=== PATIENT | male | born 1975 | race Caucasian/White ===

== ENCOUNTER 2019-10-23 19:35 | Observation (INO) ==
[2019-10-23] MEDS ORDERED: SODIUM CHLORIDE 0.9% 500 ML IV ONE (20:01)
[2019-10-23 20:14] LABS: Basophils # (auto) 0.01 K/uL (0-0.2); Basophils % (auto) 0.1 %; Eosinophils # (auto) 0.15 K/uL (0-0.5); Eosinophils % (auto) 1.8 %; Hematocrit (blood only) 40.2 % (42-52); Hemoglobin 13.9 g/dL (14.0-18.0); Immature Granulocytes # (auto) 0.02 K/uL (0.00-0.02); Immature Granulocytes % (auto) 0.2 %; Lymphocytes # (auto) 2.73 K/uL (1.2-3.4); Lymphocytes % (auto) 32.2 %; Mean Corpuscular Hemoglobin 30.2 pg (25-34); Mean Corpuscular Hgb Conc 34.6 g/dL (32-36); Mean Corpuscular Volume 87.2 fL (80-100); Mean Platelet Volume 9.2 fL (7.4-10.4); Monocytes # (auto) 0.77 K/uL (0.11-0.59); Monocytes % (auto) 9.1 %; Neutrophils # (auto) 4.81 K/uL (1.4-6.5); Neutrophils % (auto) 56.6 %; Platelet Count 253 K/uL (130-400); RDW Coefficient of Variation 13.8 % (11.5-14.5); RDW Standard Deviation 43.7 fL (36.4-46.3); Red Blood Count 4.61 M/uL (4.7-6.1); White Blood Count 8.49 K/uL (4.8-10.8)
--- NOTE | 2019-10-23 20:15 | XRay Report ---
XR chest 1V portable HISTORY: 44 years-old Male Chest Pain acute atypical chest pain COMPARISON: Chest radiograph 6 06/30/2015 TECHNIQUE: Portable AP view of the chest FINDINGS: Cardiomediastinal and hilar silhouettes are within normal limits. No pneumothorax, pleural effusion, airspace consolidation or overt pulmonary edema. Bones of the chest appear grossly intact. IMPRESSION: No acute process. ACT 112: Negative or not required by law. The above report was generated using voice recognition software. It may contain grammatical, syntax o r spelling errors. Electronically signed by: Edd Moody M.D. 10/23/2019 8:13 PM
--- NOTE | 2019-10-23 20:21 | Emergency Department Note ---
Impression & Plan Exertional chest pain, History of coronary artery disease, Hypertension ED Provider Note NAME: ZAHIDA SUMMERS AGE: 44 SEX: M ARRIVES VIA: Walk-In INFORMANT: Patient, ED PROVIDER(S): Phil Reid MD CHIEF COMPLAINT: Chest pain PLAN: Disposition: Admit MEDICAL DECISION MAKING: The patient is a pleasant 44-year-old gentleman with a past medical history of CAD status post RCA PCI 6 years ago who presents emergency department with the development of new onset exertional chest pain over the past several weeks with most recent episode 2 hours prior to arrival. Patient reports the symptoms are fairly consistent with exertion and improved with rest. He denies any fevers, chills, cough, congestion, nausea, vomiting, diarrhea, urinary symptoms. On arrival patient is no acute distress, afebrile stable vital signs. EKG without overt acute ischemia. Chest x-ray negative for acute process. WBC and platelets within normal limits. H/H 13.9/40.2 without recent values for comparison. Chemistry without acidosis. Magnesium 1.7 with repletion provided. Troponin negative/undetectable. Lipase is not elevated. Heart score 5, m oderate risk. Given the patient's new onset pattern of exertional chest pain in setting of his cardiac history reasonable admit the patient for further evaluation. Patient is agreeable to this. Case was discussed with Dr. Carty, [facility] hospitalist, who will evaluate the patient for admission. Triage Nursing notes reviewed and agree them. Prior medical records reviewed Vital Signs: reviewed and remarkable for no significant abnormalities Differential diagnosis: Cardiac ischemia, aortic dissection, pulmonary embolism, pneumothorax, pneumonia, pericarditis, myocarditis, esophageal rupture, GERD, cholecystitis, pancreatitis, musculoskeletal, as well as other pathologies. ER treatment provided: See below. Diagnostics interpreted by me: ECG: Normal sinus rhythm, 79 bpm, normal axis, no ectopy, no overt ST elevation or depression, QTC 440, QRS 94. Cardiac Monitoring: An order for continuous cardiac monitoring was placed and demonstrated normal sinus rhythm, 79 bpm, no ectopy. Laboratory studies: See below Imaging studies: XR chest 1V portable HISTORY: 44 years-old Male Chest Pain acute atypical chest pain COMPARISON: Chest radiograph 6 06/30/2015 TECHNIQUE: Portable AP view of the chest FINDINGS: Cardiomediastinal and hilar silhouettes are within normal limits. No pneumothorax, pleural effusion, airspace consolidation or overt pulmonary edema. Bones of the chest appear grossly intact. IMPRESSION: No acute process. Consultation(s): Case was discussed with Dr. Carty, [facility] hospitalist, who will evaluate the patient for admission. HPI: The patient is a pleasant 44-year-old gentleman with a past medical history of CAD status post RCA PCI 6 years ago who presents emergency department with the development of new onset exertional chest pain over the past several weeks with most recent episode 2 hours prior to arrival. Patient reports the symptoms are fairly consistent with exertion and improved with rest. He denies any fevers, chills, cough, congestion, nausea, vomiting, diarrhea, urinary symptoms. ROS: See above HPI for pertinent positives & negatives. A total of 10 systems reviewed and were otherwise negative. PAST MEDICAL HISTORY:See Below PAST SURGICAL HISTORY:See Below FAMILY HISTORY:See Below SOCIAL HISTORY:See Below HOME MEDICATIONS:See Below ALLERGIES:See Below VITALS:See Below PHYSICAL EXAMINATION: GENERAL: Awake, alert, well-appearing, in no distress HENT: Normocephalic, atraumatic. Oropharynx unremarkable. EYES: Normal conjunctiva. Sclera non-icteric. NECK: Supple. No nuchal rigidity. FROM. No JVD. RESPIRATORY: Clear to auscultation. CARDIAC: Regular rate, normal rhythm. Extremities warm and well perfused. Pulses equal. ABDOMEN: Soft, non-distended. No tenderness to palpation. No rebound or guarding. No masses. RECTAL: Deferred. MUSCULOSKELETAL: Chest examination reveals no tenderness. The back is symmetric al on inspection without obvious abnormality. There is no CVA tenderness to palpation. No joint edema. LOWER EXTREMITIES: Calves are equal size bilaterally and non-tender. No edema. No discoloration. NEURO: Normal sensorium. No sensory or motor deficits noted. SKIN: No rash or jaundice noted. Phil Reid MD Past Med/Surg History Medical History History of coronary artery disease Hypercholesteremia Social History Smoking Status: Never smoker Tobacco Type: Cigarettes Hx Alcohol Use: No Hx Substance Use: No Preferred Language: Spanish Communication Ability: Effective Beliefs That Will Affect Care: None Current Living Situation: Alone Feels Safe at Home: Yes Safety Concerns: Feels Safe At This Time Allergies Allergies Allergy/AdvReac Type Severity Reaction Status Date / Time No Known Allergies Allergy Unknown Verified 10/23/19 20:18 Home Meds Home Medications Medication Instructions Recorded Confirmed aspirin [Aspirin Low Dose] 81 mg PO DAILY 10/23/19 10/23/19 Results & Data (ED) Vital Signs Vital Signs - 24 hr 10/23/19 19:40 10/23/19 19:47 10/23/19 19:51 Temperature 36.8 C Temperature Source Oral Pulse Rate 83 78 Pulse Rate [Apical] Pulse Rate from SpO2 Sensor 79 Pulse Rhythm Regular Pulse Strength Normal Respiratory Rate 16 17 Respiratory Effort / Characteristics Non-Labored Spontaneous Respiratory Depth Normal Blood Pressure 189/124 H Blood Pressure [Left Arm] Blood Pressure Mean 145 Blood Pressure Mean [Left Arm] Pulse Oximetry 99 99 99 Oxygen Delivery Method Room Air Room Air Sepsis Recent Fever Within 48 Hours No Sepsis New/Unexplained Change in Mental Status N/A Sepsis Action Taken by Nursing No Action Required 10/23/19 20:00 10/23/19 20:01 10/23/19 20:02 Temperature Temperature Source Pulse Rate 77 Pulse Rate [Apical] 78 Pulse Rate from SpO2 Sensor 77 Pulse Rhythm Pulse Strength Respiratory Rate 16 18 Respiratory Effort / Characteristics Respiratory Depth Normal Blood Pressure Blood Pressure [Left Arm] 180/93 H Blood Pressure Mean Blood Pressure Mean [Left Arm] 122 Pulse Oximetry 98 98 98 Oxygen Delivery Method Room Air Room Air Sepsis Recent Fever Within 48 Hours Sepsis New/Unexplained Change in Mental Status Sepsis Action Taken by Nursing 10/23/19 20:10 10/23/19 20:20 10/23/19 20:30 Temperature Temperature Source Pulse Rate 80 78 97 H Pulse Rate [Apical] Pulse Rate from SpO2 Sensor 80 78 94 H Pulse Rhythm Pulse Strength Respiratory Rate 18 22 17 Respiratory Effort / Characteristics Respiratory Depth Blood Pressure 150/119 H Blood Pressure [Left Arm] Blood Pressure Mean 126 Blood Pressure Mean [Left Arm] Pulse Oximetry 97 96 98 Oxygen Delivery Method Sepsis Recent Fever Within 48 Hours Sepsis New/Unexplained Change in Mental Status Sepsis Action Taken by Nursing 10/23/19 20:31 Temperature Temperature Source Pulse Rate 88 Pulse Rate [Apical] Pulse Rate from SpO2 Sensor 88 Pulse Rhythm Pulse Strength Respiratory Rate 24 Respiratory Effort / Characteristics Respiratory Depth Blood Pressure Blood Pressure [Left Arm] Blood Pressure Mean Blood Pressure Mean [Left Arm] Pulse Oximetry 97 Oxygen Delivery Method Sepsis Recent Fever Within 48 Hours Sepsis New/Unexplained Change in Mental Status Sepsis Action Taken by Nursing Laboratory Data Attestation: I reviewed the patient's lab results. Result diagrams: 10/23/19 20:03 10/23/19 20:03 Lab Results 10/23/19 10/23/19 10/23/19 Range/Units 20:03 20:03 20:03 WBC 8.49 (4.8-10.8) K/uL RBC 4.61 L (4.7-6.1) M/uL Hgb 13.9 L (14.0-18.0) g/dL Hct 40.2 L (42-52) % MCV 87.2 (80-100) fL MCH 30.2 (25-34) pg MCHC 34.6 (32-36) g/dL RDW Std Deviation 43.7 (36.4-46.3) fL RDW Coeff of Larry 13.8 (11.5-14.5) % Plt Count 253 (130-400) K/uL MPV 9.2 (7.4-10.4) fL Immature Gran % (Auto) 0.2 % Neut % (Auto) 56.6 % Lymph % (Auto) 32.2 % [place] % (Auto) 9.1 % Eos % (Auto) 1.8 % Baso % (Auto) 0.1 % Neut # (Auto) 4.81 (1.4-6.5) K/uL Lymph # (Auto) 2.73 (1.2-3.4) K/uL [place] # (Auto) 0.77 H (0.11-0.59) K/uL Eos # (Auto) 0.15 (0-0.5) K/uL Baso # (Auto) 0.01 (0-0.2) K/uL Immature Gran # (Auto) 0.02 (0.00-0.02) K/uL PT 10.9 (9.0-12.0) Seconds INR 1.0 (0.9-1.1) APTT 28.9 (21.0-31.0) Seconds PTT Ratio 1.0 Sodium 141 (136-145) mmol/L Potassium 3.9 (3.5-5.1) mmol/L Chloride 109 H (98-107) mmol/L Carbon Dioxide 27 (21-32) mmol/L Anion Gap 5.0 (3-11) BUN 6 L (7-18) mg/dl Creatinine 0.92 (0.6-1.4) mg/dl Est Cr Clr Drug Dosing 96.6 ml/min Est GFR ( Amer) 115.2 Est GFR (Non-Af Amer) 99.4 BUN/Creatinine Ratio 6.1 L (10-20) Glucose 91 (70-99) mg/dl Calcium 9.7 (8.5-10.1) mg/dl Phosphorus 2.9 (2.5-4.9) mg/dl Magnesium 1.7 L (1.8-2.4) mg/dl Total Bilirubin 0.4 (0.2-1) mg/dl Direct Bilirubin < 0.1 (0-0.2) mg/dl AST 15 (15-37) U/L ALT 22 (12-78) U/L Alkaline Phosphatase 125 H (45-117) U/L Troponin I < 0.015 (0-0.045) ng/ml Total Protein 7.7 (6.4-8.2) gm/dl Albumin 3.7 (3.4-5.0) gm/dl Globulin 4.0 (2.5-4.0) gm/dl Albumin/Globulin Ratio 0.9 (0.9-2) Lipase 69 L (73-393) U/L TSH 3.120 (0.300-4.500) uIu/ml Administered Medications Acetaminophen (Acetaminophen 325 Mg Tab) 650 mg PO Q4H PRN PRN Reason: Pain or Fever Stop: 11/22/19 22:45 Last Admin: 10/23/19 22:59 Dose: 650 mg Documented by: [id number] Potassium Chloride/Sodium Chloride (Normal Saline W/20 Meq Kcl) 20 meq in 1,000 mls @ 100 mls/hr IV .Q10H AMAURY Stop: 11/22/19 22:45 Last Admin: 10/23/19 23:40 Dose: 100 mls/hr Documented by: [id number] Discontinued Medications Aspirin (Aspirin Chew 324 Mg) 162 mg PO NOW STA Stop: 10/23/19 21:08 Last Admin: 10/23/19 21:15 Dose: 162 mg Documented by: [id number] Sodium Chloride (Nss) 500 mls @ 999 mls/hr IV .Q31M ONE Stop: 10/23/19 20:31 Last Infusion: 10/23/19 21:05 Dose: 0 mls/hr Documented by: [id number] Admin: 10/23/19 20:27 Dose: 999 mls/hr Documented by: [id number] Magnesium Sulfate/Dextrose (Magnesium Sulfate / D5w) 1 gm in 100 mls @ 100 mls/hr IV Q1H AMAURY Stop: 10/23/19 23:06 Last Infusion: 10/23/19 23:40 Dose: 0 mls/hr Documented by: [id number] Admin: 10/23/19 22:34 Dose: 100 mls/hr Documented by: [id number] Infusion: 10/23/19 22:18 Dose: 0 mls/hr Documented by: [id number] Admin: 10/23/19 21:15 Dose: 100 mls/hr Documented by: [id number] Nitroglycerin (Nitroglycerin Sl 0.4 Mg/Tab Tab) 0.4 mg SL NOW STA Stop: 10/23/19 22:03 Last Admin: 10/23/19 22:06 Dose: 0.4 mg Documented by: [id number] Blood Pressure Blood Pressure Findings: Elevated blood pressure Blood Pressure Disposition: further management by hospitalist Discharge Plan Visit Data Chief Complaint: Chest Pain Stated Complaint: CHEST PAIN, ARM PAIN/ NUMBNESS ED Provider: Phil Reid Discharge Problem: Exertional chest pain, History of coronary artery disease, Hypertension Patient Disposition: Admitted As Inpatient Discharge Instructions Interventions: ED Discharge Assessment Last Done: 10/23/19 22:21
[2019-10-23 20:25] LABS: Partial Thromboplastin Time 28.9 Seconds (21.0-31.0); Prothrombin Time 10.9 Seconds (9.0-12.0)
[2019-10-23 20:34] LABS: Alanine Aminotransferase 22 U/L (12-78); Albumin Level 3.7 gm/dl (3.4-5.0); Aspartate Aminotransferase 15 U/L (15-37); BUN Creatinine Ratio 6.1 (10-20); Bilirubin Direct < 0.1 mg/dl (0-0.2); Blood Urea Nitrogen 6 mg/dl (7-18); Calcium 9.7 mg/dl (8.5-10.1); Carbon Dioxide 27 mmol/L (21-32); Chloride 109 mmol/L (98-107); Creatinine Clr Calc Pharmacy 96.6 ml/min; Est GFR (African American) 115.2; Est GFR (Non-African American) 99.4; Glucose 91 mg/dl (70-99); Lipase 69 U/L (73-393); Magnesium 1.7 mg/dl (1.8-2.4); Potassium 3.9 mmol/L (3.5-5.1); Sodium 141 mmol/L (136-145)
[2019-10-23 20:43] LABS: Albumin Globulin Ratio 0.9 (0.9-2); Alkaline Phosphatase 125 U/L (45-117); Bilirubin,Total 0.4 mg/dl (0.2-1); Phosphorus 2.9 mg/dl (2.5-4.9); Total Protein 7.7 gm/dl (6.4-8.2); Troponin I < 0.015 ng/ml (0-0.045)
[2019-10-23] MEDS ORDERED: ASPIRIN CHEW 324 MG PO STA (21:07)
[2019-10-23] MEDS: MAGNESIUM SULFATE / D5W 1 GM/100 ML BAG IV SCH ×2 (21:15→22:34)
--- NOTE | 2019-10-23 21:40 | History & Physical Report ---
Date of Service October 23, 2019 Assessment & Plan (1) Unstable angina: Yovanny is a 44-year-old male with a past medical history of RCA PCI 6 years ago and early family history of cardiac disease with his father having heart attack at age 38 and his mother at 70s who presents with increasing stable angina and his first episode of unstable angina. Unstable angina, history of angina and PCI Patient with persistent stable angina over the past few years which improves with rest History of RCA stent 2016, follow-up echo with LVEF 60% Last 24 hours he had exertional chest pain which seems to be much worse in intensity and which has spread into his left shoulder, which has persisted and is still current at rest EKG does not show signs of ischemic change Troponin on arrival to ED negative Trend troponin TTE tomorrow morning Cardiology consulted Patient was previously on a beta-deborah, he self discontinued this due to exertional fatigue about 1 year ago. He is not on an IRINEO/arb or statin. Given his history of coronary disease would recommend these medications. Lipid profi le and A1c pending. Admit to telemetry, n.p.o. overnight BMP, CBC in morning History of syncope Patient had an episode of syncope several years ago. He has not had any lightheadedness, dizziness, syncope, presyncope since He had an implantable loop recorder placed several years ago which was explanted this past year and which did not capture any rhythm irregularities. Because of syncope was not identified, was recommended for device removal and further follow-up as needed by car pathology on 09/2019. Reported history of Crohn's Patient reports that he was told he had Crohn's as a teenager, he has not had any flares since then He had a colonoscopy in the last year for concerns of some mucus, did not show any signs or changes of Crohn's Follow clinically, this may have been a suspected diagnosis without confirmation via colo-/biopsy Hypomagnesemia Repletion ordered BMP daily Elevated AlkPhos - [place] negative, afebrile, no leukocytosis, no sx with meals - Liver ultrasound ordered FEN GI: N.p.o., NSS +10 KCl 120 cc/h CODE STATUS: Full code Dispo: telemetry DVT prophylaxis: SCDs (2) History of loop recorder: (3) CAD (coronary artery disease): (4) IBS (irritable bowel syndrome): (5) Crohn disease: History of Present Illness Chief Complaint: Chest pain Primary Care Provider: Neftali Dior MD Last couple week he has had on and off chest pain. Usually goes away with an aspirin or two. Today he was loading floor tile and after that the pain came on strongly and his left arm felt numb. When he returned home he was walking his dog but the left arm sensation would not improve so he got concerned and presented to the hospital. Cowley flushed during this episode. He continues to feel a little pressure in his chest, 1 out of 10 at rest which is new for him. He has a history of angina in the past, but his episode seemed much more intense. Right now it is 'barely there.' Prior to coming in it was a 6/10. He has not taken any nitro. No chest pain or symptoms while at rest normally. No shortness of breath or diaphoresis normally, he has had one episode of diaphoresis with exertion last week.He had an episode of neck discomfort improved with benadryl. No wheezing or airway involvement. Medication: ASA. No other medications. He used to be on metoprolol, which he stopped on his own about a year and a half ago due to it causing fatigue. He stopped plaavix one year after his stend. Medhx: reviewed SHx: Appendectomy, PCI, L5/S1 disk replacement Allergies: NKDA Social: Former no recent tobacco product use, very rare alcohol use, no recreational drug use. Lives at home with his dog, single. CODE STATUS: Full Code Allergies Allergy/AdvReac Type Severity Reaction Status Date / Time No Known Allergies Allergy Unknown Verified 10/23/19 20:18 Home Medications Home Medications Medication Instructions Recorded Confirmed Type aspirin [Aspirin Low Dose] 81 mg PO DAILY 10/23/19 10/23/19 History atorvastatin 40 mg PO QAM #30 tab 10/24/19 Rx metoprolol tartrate 12.5 mg PO BID #60 tab 10/24/19 Rx nitroglycerin [Nitrostat] 0.4 mg SUBLINGUAL UD PRN #25 tab 10/24/19 Rx Past Med/Surg History Medical History History of coronary artery disease Hypercholesteremia Social History Smoking Status: Never smoker Tobacco Type: Cigarettes Hx Alcohol Use: No Hx Substance Use: No Preferred Language: Afghan Communication Ability: Effective Beliefs That Will Affect Care: None Current Living Situation: Alone Feels Safe at Home: Yes Review of Systems Review of Systems: All systems reviewed & are unremarkable except as noted in HPI & below Physical Exam Physical Exam: General: A&Ox3. NAD. Cooperative. HEENT: Atraumatic, normocephalic. pupils equal and reactive to light and accommodation. Visual acuity grossly intact. Extraocular movements intact. Pulm: CTAB A&P. -wheezes, -rales, -rhonchi. Symmetrical chest rise. No increase work of breathing. No respiratory distress. Cardiac: RRR, -mrg. Radial pulses intact and symmetrical. No JVD. Abdominal: Nontender, nondistended, soft. BS present. Extremities: Extremities warm, dry. PT pulse and radial pulses intact to palpation and symmetrical bilaterally. Sensation is soft touch intact in fingers and toes bilaterally without asymmetry. Results & Data Results & Data ([facility]) Vital Signs (Past 12 Hours) Vital Signs Temp Pulse Pulse Resp BP BP Pulse Ox 10/23/19 20:31 88 24 97 10/23/19 20:30 97 H 17 150/119 H 98 10/23/19 20:20 78 22 96 10/23/19 20:10 80 18 97 10/23/19 20:02 98 10/23/19 20:01 78 18 180/93 H 98 10/23/19 20:00 77 16 98 10/23/19 19:51 78 17 99 10/23/19 19:47 99 10/23/19 19:40 36.8 C 83 16 189/124 H 99 Supervising Physician Co-Signing Physician Notes Attending addendum: I have physically seen this patient, have supervised the medical residents activities, and agree with the H&P unless as otherwise noted. Assessment and Plan: Unstable angina/CAD/history of acute RCA STEMI with stent 10/28/2014- The patient will be admitted to telemetry for serial cardiac enzymes, serial EKG's, cardiac rhythm monitoring and a 2-D echocardiogram with Dopplers. Patient reportedly stopped his beta-deborah and statin on his own. Check a fasting lipid panel and hemoglobin A1c Aspirin 81 mg daily Metoprolol tartrate 12.5 mg p.o. twice daily Atorvastatin 40 mg p.o. daily Consult cardiology Remaining orders and notations as noted Resident Activity Tracking Resident Involvement: Resident Care Provided Care Provided: [facility]
[2019-10-23] MEDS ORDERED: NITROGLYCERIN SL 0.4 MG/TAB TAB SL STA (22:02)
[2019-10-23] MEDS ORDERED: ACETAMINOPHEN 325 MG TAB PO PRN (22:46)
[2019-10-23] MEDS ORDERED: NITROGLYCERIN SL 0.4 MG/TAB TAB SL PRN (22:46)
[2019-10-23] MEDS: NSS + 20MEQ KCL 20 MEQ/1,000 ML BAG IV SCH (23:40)
[2019-10-24 06:25] LABS: Basophils # (auto) 0.01 K/uL (0-0.2); Basophils % (auto) 0.1 %; Eosinophils # (auto) 0.17 K/uL (0-0.5); Eosinophils % (auto) 2.5 %; Hematocrit (blood only) 40.3 % (42-52); Hemoglobin 13.5 g/dL (14.0-18.0); Immature Granulocytes # (auto) 0.01 K/uL (0.00-0.02); Immature Granulocytes % (auto) 0.1 %; Lymphocytes % (auto) 29.5 %; Mean Corpuscular Hemoglobin 29.4 pg (25-34); Mean Corpuscular Hgb Conc 33.5 g/dL (32-36); Mean Corpuscular Volume 87.8 fL (80-100); Mean Platelet Volume 9.4 fL (7.4-10.4); Monocytes # (auto) 0.72 K/uL (0.11-0.59); Monocytes % (auto) 10.6 %; Neutrophils # (auto) 3.88 K/uL (1.4-6.5); Neutrophils % (auto) 57.2 %; Platelet Count 237 K/uL (130-400); RDW Coefficient of Variation 13.8 % (11.5-14.5); RDW Standard Deviation 44.7 fL (36.4-46.3); Red Blood Count 4.59 M/uL (4.7-6.1); White Blood Count 6.79 K/uL (4.8-10.8)
[2019-10-24 06:59] LABS: BUN Creatinine Ratio 5.9 (10-20); Calcium 8.8 mg/dl (8.5-10.1); Est GFR (African American) 126.1; Est GFR (Non-African American) 108.8; Potassium 3.7 mmol/L (3.5-5.1)
[2019-10-24] MEDS: NSS + 20MEQ KCL 20 MEQ/1,000 ML BAG IV SCH (07:25)
--- NOTE | 2019-10-24 07:41 | Ultrasound Report ---
US liver CLINICAL HISTORY: Elevated liver function tests COMPARISON STUDY: CT scan dated 09/24/2018 FINDINGS: There is suboptimal visualization of the pancreas. There are a few equivocal tiny gallbladder polyps of doubtful clinical significance. No calculi are v isualized The right kidney is lobulated. There is no hydronephrosis. There is no ductal dilatation. The common bile duct measures 2.5 mm. There is an 11 mm echogenic lesion within the right lobe of the liver. This is consistent with althou gh not specific for a hepatic hemangioma. IMPRESSION: 1. Nondiagnostic evaluation of the pancreas 2. No evidence of ductal dilatation 3. 11 mm echogenic lesion within the right lobe the liver. This is consistent with although not speci fic for a hepatic hemangioma 4. No gallstones identified ACT 112: Negative or not required by law. Electronically signed by: Gian King M.D. 10/24/2019 7:40 AM
[2019-10-24] MEDS ORDERED: ATORVASTATIN 40 MG TAB PO SCH (09:00)
[2019-10-24] MEDS ORDERED: ASPIRIN 81 MG ECTAB PO SCH (09:00)
[2019-10-24] MEDS ORDERED: METOPROLOL TARTRATE 25 MG TAB PO SCH (09:00)
--- NOTE | 2019-10-24 11:05 | XCELERA ---
[id number]
--- NOTE | 2019-10-24 12:37 | Hospitalist Progress Note ---
Date of Service October 24, 2019 Assessment & Plan (1) Chest pain: Could possibly be unstable angina. Telemetry. Cardiology consultation. Serial troponins. Cardiac echo to rule out regional wall motion abnormalities. Continue aspirin, atorvastatin, metoprolol (2) Hypertension: Treated with metoprolol. (3) History of coronary artery disease: PCI of the right coronary artery in 2016. Continue medical management (4) Hypomagnesemia: Magnesium replacement therapy. Serial labs Admission and Anticipated Discharge Date Admission Date: October 23, 2019 Subjective Alert and oriented. No chest pain at the time of my examination. Troponins negative x2. Will repeat a third troponin. Awaiting cardiology evaluation. Review of Systems Review of Systems: REVIEW OF SYSTEM: HEENT: No dizziness, visual problems, hearing loss, tinnitus. There is no difficulty swallowing and no oral lesions are present. LYMPH: No adenopathy. PULMONARY: No cough, shortness of breath, sputum production or hemoptysis. CARDIOVASCULAR: No palpitations, shortness of breath or peripheral edema. Chest discomfort as described in history of present illness GASTROINTESTINAL: No diarrhea, constipation, nausea, vomiting, or abdominal pain. GENITOURINARY: No dysuria, frequency, urgency or nocturia. NEUROLOGIC: No weakness, muscle tenderness, epilepsy or history of neurological problems. No history of chronic headaches. MUSCULOSKELETAL: No history of joint tenderness/swelling. No history of arthritis or arthralgias. SKIN: No rashes or lesions. PSYCHIATRIC: No history of depression or mental illness. ENDOCRINE: No history of diabetes, thyroid disorders, abnormal hair growth or sexual dysfunction. Physical Exam Constitutional: WD/WN, vitals as above Eyes: PERRL, conjunctivae normal, anicteric sclerae ENMT: external ear and nose normal, oropharynx normal Neck: trachea midline, no thyromegaly Respiratory: normal respiratory effort, lungs clear to auscultation Cardiovascular: RRR, no murmur, no edema Gastrointestinal (Abdomen): normal bowel sounds, soft, nontender, no hepatosplenomegaly Musculoskeletal: no cyanosis or clubbing, extremities motor strength 5/5 Neurologic: CN's II-XI intact bilaterally and moves all extremities Psychiatric: A+Ox3, euthymic affect Genitourinary: no testicular masses, no penis abnormality Lymphatic: no cervical or axillary lymphadenopathy Results & Data Results & Data ([facility]) Vital Signs (Past 12 Hours) Vital Signs Temp Pulse Pulse Resp BP Pulse Ox 08/20/20 11:48 36.6 C 52 L 18 124/77 96 10/24/19 07:57 36.5 C 61 20 134/89 99 10/24/19 04:13 36.4 C L 65 16 129/74 97 10/24/19 01:25 70 Laboratory Results 10/24/19 05:57 10/24/19 05:57 PG Care Time/CCT Total # of Minutes Spent Total Time Spent with Patient: Total time spent is greater than 50% in coordination of care (as documented) at patient's floor/unit and/or counseling patient: Coding Level of Care Code 31621 Subseq Hosp Care Lvl 3 Diagnoses Chest pain R07.9 Hypertension I10 History of coronary artery disease Z86.79 Hypomagnesemia E83.42
--- NOTE | 2019-10-24 21:10 | Billing Data ---
Date of Service October 24, 2019 Coding Level of Care Code 47072 OBS Care - Level 3
--- NOTE | 2019-10-25 05:17 | Electrocardiogram Report ---
Test Reason : Blood Pressure : / mmHG Vent. Rate : 079 BPM Atrial Rate : 079 BPM P-R Int : 146 ms QRS Dur : 094 ms QT Int : 384 ms P-R-T Axes : 051 030 022 degrees QTc Int : 440 ms Poor data quality, interpretation may be adversely affected Normal sinus rhythm Normal ECG When compared with ECG of 01-JUL-2015 06:28, No significant change was found Confirmed by Jhon Mora ([id number]) on 10/25/2019 5:16:54 AM Referred By: REFERRED SELF Confirmed By:Jhon Mora
--- NOTE | 2019-10-25 05:30 | Electrocardiogram Report ---
Test Reason : Blood Pressure : / mmHG Vent. Rate : 063 BPM Atrial Rate : 063 BPM P-R Int : 146 ms QRS Dur : 094 ms QT Int : 442 ms P-R-T Axes : 055 047 012 degrees QTc Int : 452 ms Normal sinus rhythm Normal ECG When compared with ECG of 23-OCT-2019 19:41, No significant change was found Confirmed by Jhon Mora ([id number]) on 10/25/2019 5:29:25 AM Referred By: REFERRED SELF Confirmed By:Jhon Mora
--- NOTE | 2019-11-01 10:42 | Cardiology Consultation ---
Date of Consultation November 01, 2019 Assessment & Plan (1) Chest pain: The patient was discharged from the hospital before seen by the cardiology service. I was not in the hospital that day as I was seeing patients in the outreach clinic in [place]. History of Present Illness Attending Physician: Viet Pollard MD Allergies Allergy/AdvReac Type Severity Reaction Status Date / Time No Known Allergies Allergy Unknown Verified 10/31/19 13:47 Home Medications Home Medications Medication Instructions Recorded Confirmed Type aspirin [Aspirin Low Dose] 81 mg PO DAILY 10/23/19 10/31/19 History atorvastatin 40 mg PO QAM #30 tab 10/24/19 10/31/19 Rx metoprolol tartrate 12.5 mg PO BID #60 tab 10/24/19 10/31/19 Rx nitroglycerin [Nitrostat] 0.4 mg SUBLINGUAL UD PRN #25 tab 10/24/19 10/31/19 Rx Patient History Medical History History of coronary artery disease Hypercholesteremia Social History Smoking Status: Never smoker Tobacco Type: Cigarettes Hx Alcohol Use: No Hx Substance Use: No Preferred Language: Korean Communication Ability: Effective Beliefs That Will Affect Care: None Current Living Situation: Alone Feels Safe at Home: Yes PG Care Time/CCT Total # of Minutes Spent Total Time Spent with Patient: Total time spent is greater than 50% in coordination of care (as documented) at patient's floor/unit and/or counseling patient: Coding Level of Care Code None Diagnoses Chest pain R07.9
== END 2019-10-24 13:55 | disposition home or self-care (01) ==
LOC: ED 19:35 → SUATTDRO 22:01 → 2S 22:01 → INTOOBSV 22:01 → 2S 22:21